=== PATIENT | female | born 1965 | race Caucasian/White ===

== ENCOUNTER 2018-03-09 16:36 | Emergency (ER) | payer BC ==
[~2018-03-09] VITALS: Ht 170.2 cm; Wt 59.1 kg
[2018-03-09 16:45] VITALS: BP 127/52
[2018-03-09] MEDS ORDERED: DIAZEPAM 5 MG TABLET ONE (17:49)
[2018-03-09] MEDS ORDERED: PLEASE ENTER ALLERGIES MC SCH (18:00)
[2018-03-09] MEDS ORDERED: DIAZEPAM 5 MG TABLET PO ONE (18:00)
== END 2018-03-09 19:04 | disposition home or self-care (01) ==
LOC: ED 18:58
DX: R51 Headache (principal); R07.89 Other chest pain; M54.9 Dorsalgia, unspecified; Z98.51 Tubal ligation status; V49.88XA Car occupant (driver) (passenger) injured in other specified transport accidents, initial encounter; Y93.89 Activity, other specified; Y92.89 Other specified places as the place of occurrence of the external cause; Y99.8 Other external cause status
CPT/HCPCS: 70450; 71046; 99284